=== PATIENT | female | born 1945 | race Caucasian/White ===

== ENCOUNTER 2020-01-23 15:11 | Outpatient (CLI) | payer MEDICARE ==
--- NOTE | 2020-01-23 15:49 | RAD ---
PA AND LATERAL VIEWS OF CHEST: 01/23/20 HISTORY: Cough. FINDINGS: There is elevation of the right hemidiaphragm. The heart size is borderline. No lobar consolidation, pneumothoraces, kerline pulmonary edema or pleural effusions are seen. There are degenerative changes i n the spine. IMPRESSION: No acute process. POS: [facility]
== END 2020-01-23 15:12 | disposition home or self-care (01) ==
LOC: NAV RAD 15:11
PROVIDERS: ATTEND Nurse Practitioner Adult Health
DX: R05 Cough (principal)
CPT/HCPCS: 71046

== ENCOUNTER 2023-05-29 10:46 | Emergency (ER) | payer MEDICARE ==
[2023-05-29 11:59] LABS: Bilirubin Negative (Negative); Blood, Urine Trace (Negative); Clarity Clear (Clear); Glucose, Urine (Dipstick) Negative (Negative); Ketone, Urine Negative (Negative); Leukocyte Trace (Negative); Nitrite Negative (Negative); Protein, Urine (Dipstick) Negative (Neg-Trace); Urobilinogen 0.2 mg/dL (Less than 2); pH, Urine 5.5 (5.0-9.0)
[2023-05-29 12:00] LABS: Specific Gravity, Urine 1.021 (1.002-1.036)
[2023-05-29 12:06] LABS: #Eosinphils 0.1 thou/uL (0.0-0.7); #Lymphocytes 0.9 thou/uL (1.20-3.40); #Monocytes 0.6 thou/uL (0.11-0.59); #Neutrophils 5.7 thou/uL (1.40-6.50); %Basophils 0.6 % (0.0-1.0); %Eosinophils 1.4 % (0.0-10.0); %Lymphocytes 12.6 % (21.0-51.0); %Monocytes 8.2 % (0.0-10.0); %Neutrophils 77.2 % (42.0-75.0); Hemoglobin 13.6 g/dL (12.0-16.0); Mean Corpuscular HGB CONC 31.9 g/dL (32.0-36.0); Mean Corpuscular Hemoglobin 30.5 pg (27.0-31.0); Mean Corpuscular Volume 95.4 fl (78.0-98.0); Mean Platelet Volume 7.9 fL (7.4-10.4); Platelet Count 170 10x3/uL (130-400); RBC Distribution Width 13.1 % (11.5-14.5); Red Blood Cell (RBC) Count 4.47 mill/uL (4.20-5.40); White Blood Cell (WBC) Count 7.4 10x3/uL (4.8-10.8)
[2023-05-29 12:06] LABS: CAUTI Indications for Culture Dysuria,urgency,freq; RBC/HPF 0-3 HPF (0-3); Squamous Epithelial 0-3 HPF (0-3); WBC/HPF 0-3 HPF (0-3)
[2023-05-29 12:07] LABS: Bacteria/HPF Rare-Few HPF (None Seen)
[2023-05-29 12:08] LABS: Urine Culture Reflex No No
[2023-05-29 12:22] LABS: ALT (SGPT) 17 U/L (8-55); AST (SGOT) 15 U/L (5-34); Albumin 3.7 g/dL (3.4-4.8); Alkaline Phosphatase 70 U/L (40-110); Anion Gap 13 mmol/L (10-20); BUN (Urea Nitrogen) 16 mg/dL (9.8-20.1); Bilirubin, Total 0.6 mg/dL (0.2-1.2); CK (CPK) 103 U/L (29-168); Calc. Creatinine Clearance 0 mL/min (70-130); Calcium 9.4 mg/dL (7.8-10.44); Carbon Dioxide 27 mmol/L (23-31); Chloride 108 mmol/L (98-107); Estimated GFR 57; Globulin 2.3 g/dL (2.4-3.5); Glucose 91 mg/dL (83-110); Potassium 3.7 mmol/L (3.5-5.1); Sodium 144 mmol/L (136-145)
== END 2023-05-29 13:15 | disposition home or self-care (01) ==
LOC: NAV ERS 10:46
DX: M94.0 Chondrocostal junction syndrome [Tietze] (principal); I10 Essential (primary) hypertension
CPT/HCPCS: 36415; 80053; 81001; 82550; 85025; 99283

== ENCOUNTER 2023-06-01 09:53 | Outpatient (CLI) | payer MEDICARE | END 2023-06-01 09:54 | disposition home or self-care (01) | LOC: NAV RAD 09:53 | PROVIDERS: ATTEND Nurse Practitioner Family | DX: R10.84 Generalized abdominal pain (principal); M47.814 Spondylosis without myelopathy or radiculopathy, thoracic region; M41.9 Scoliosis, unspecified | CPT/HCPCS: 71046; 72072 ==

== ENCOUNTER 2024-01-10 13:45 | Emergency (ER) | payer MEDICARE ==
[2024-01-10] MEDS ORDERED: Acetaminophen 500 MG TAB ONE (14:22)
== END 2024-01-10 15:17 | disposition home or self-care (01) ==
LOC: NAV ERS 13:45
DX: S20.214A Contusion of middle front wall of thorax, initial encounter (principal); I10 Essential (primary) hypertension; E78.00 Pure hypercholesterolemia, unspecified; K21.9 Gastro-esophageal reflux disease without esophagitis; Z79.899 Other long term (current) drug therapy; W18.30XA Fall on same level, unspecified, initial encounter

== ENCOUNTER 2024-11-22 13:48 | Outpatient (CLI) | payer MEDICARE | END 2024-11-22 13:49 | disposition home or self-care (01) | LOC: NAV RAD 13:48 | PROVIDERS: ATTEND Nurse Practitioner Family | DX: R05.9 Cough, unspecified (principal); R06.02 Shortness of breath; J98.4 Other disorders of lung | CPT/HCPCS: 71046 ==